=== PATIENT | female | born 1940 | race Caucasian/White ===

== ENCOUNTER 2017-11-18 07:14 | Day surgery (SDC) | payer MEDICARE ==
[~2017-11-18] VITALS: Ht 152.4 cm; Wt 66.0 kg
[~2017-11-18 07:14] MED LIST: BENTYL20 MG PO; FAMO20 PO; IBUP800 PO; LEVFLO500 PO; Loperamide2 MG PO; NAPR220 PO; Norco 5-325 Ta1 EACH PO; ONDA8 PO; Zofran Odt4 MG PO; [UNRECOGNIZED DRUG - OTHER] PO
== END 2017-11-18 09:45 | disposition home or self-care (01) ==
LOC: ORSCSDS 07:14
PROVIDERS: Surgery
PROC: 0DBH8ZX Excision of Cecum, Via Natural or Artificial Opening Endoscopic, Diagnostic (ICD-10-PCS; principal; 2017-11-18 08:30)
DX: Z12.11 Encounter for screening for malignant neoplasm of colon (principal); D12.0 Benign neoplasm of cecum; K63.3 Ulcer of intestine; K57.30 Diverticulosis of large intestine without perforation or abscess without bleeding; Z79.899 Other long term (current) drug therapy
CPT/HCPCS: 88305; J2405; J7120

== ENCOUNTER 2020-01-29 11:41 | Emergency (ER) | payer MEDICARE ==
[~2020-01-29] VITALS: Ht 152.4 cm; Wt 64.4 kg
[2020-01-29 12:17] LABS: BASOPHILS ABSOLUTE AUTO 0.05 K/mm3 (0.00-0.23); BASOPHILS PERCENT AUTO 1 % (0-2); EOSINOPHILS ABSOLUTE AUTO 0.21 K/mm3 (0.00-0.68); EOSINOPHILS PERCENT AUTO 2 % (0-6); Hematocrit 39.5 % (33.0-51.0); Hemoglobin 12.9 g/dL (11.5-16.0); IMMATURE GRAN ABSOLUTE AUTO 0.02 K/mm3 (0.00-0.10); IMMATURE GRAN PERCENT AUTO 0 % (0-1); LYMPHOCYTES ABSOLUTE AUTO 1.51 K/mm3 (0.84-5.20); LYMPHOCYTES PERCENT AUTO 16 % (21-46); MONOCYTES ABSOLUTE AUTO 0.96 K/mm3 (0.16-1.47); MONOCYTES PERCENT AUTO 10 % (4-13); Mean Corpuscular HGB 34.6 pg (26.0-34.0); Mean Corpuscular HGB Conc 32.7 g/dL (31.5-36.5); Mean Corpuscular Volume 106 fL (80-100); Mean Platelet Volume 9.7 fL (9.1-12.4); NEUTROPHILS ABSOLUTE AUTO 6.72 K/mm3 (1.96-9.15); NEUTROPHILS PERCENT AUTO 71 % (41-73); Platelet Count 322 K/mm3 (150-400); RDW Standard Deviation 62.8 fL (35.1-46.3); Red Blood Cell Count 3.73 M/mm3 (3.80-5.20); White Blood Cell Count 9.47 K/mm3 (4.00-11.30)
[2020-01-29 12:43] LABS: Alanine Aminotransfer (ALT/SGP 18 U/L (12-78); Albumin, Blood 2.9 g/dL (3.4-5.0); Albumin/Globulin Ratio 0.7 (0.8-1.8); Alk Phos 108 U/L (50-136); Anion Gap 5 mmol/L (6-16); Aspartate Aminotrans (AST/SGOT 17 U/L (12-37); Bilirubin, Total 0.3 mg/dL (0.1-1.0); Blood Urea Nitrogen 18 mg/dL (8-24); Bun/Creatinine Ratio 25.3 (12.0-20.0); CO2, Blood 25 mmol/L (21-32); Calcium, Blood 8.2 mg/dL (8.5-10.1); Chloride, Blood 111 mmol/L (98-108); Creatinine, Blood 0.71 mg/dL (0.40-1.00); Glomerular Filtration Rate >60 (60-); Glucose, Blood 115 mg/dL (70-99); Potassium, Blood 4.1 mmol/L (3.5-5.5); Sodium, Blood 141 mmol/L (136-145); Total Protein, Blood 6.9 g/dL (6.4-8.2); Troponin I <0.015 ng/mL (0.000-0.040)
[2020-01-29 12:52] LABS: International Normalized Ratio 0.94; Prothrombin Time Results 10.1 Sec (9.7-11.5)
== END 2020-01-29 15:17 | disposition home or self-care (01) ==
LOC: ER 11:41
PROVIDERS: Emergency Medicine
DX: J90 Pleural effusion, not elsewhere classified (principal); C56.9 Malignant neoplasm of unspecified ovary; Z88.8 Allergy status to other drugs, medicaments and biological substances; Z79.899 Other long term (current) drug therapy; Z87.891 Personal history of nicotine dependence
CPT/HCPCS: 32555; 36415; 71045; 71046; 80053; 84484; 85025; 85610; 93005; 93010; 99285-25

== ENCOUNTER 2020-02-04 10:30 | Emergency (ER) | payer MEDICARE, OTHER ==
[~2020-02-04] VITALS: Ht 152.4 cm; Wt 64.4 kg
[2020-02-04] MEDS ORDERED: CALCIUM CIT 311 EACH PO (12:14)
== END 2020-02-04 14:27 | disposition home or self-care (01) ==
LOC: ER 10:30
DX: J91.0 Malignant pleural effusion (principal); Z85.43 Personal history of malignant neoplasm of ovary; Z88.8 Allergy status to other drugs, medicaments and biological substances; Z87.891 Personal history of nicotine dependence
CPT/HCPCS: 32555; 36415; 71045; 93005; 93010; 99285-25

== ENCOUNTER 2020-02-13 10:05 | Emergency (ER) | payer MEDICARE ==
[~2020-02-13] VITALS: Ht 157.5 cm; Wt 64.4 kg
[~2020-02-13 10:05] MED LIST changes: +CALCIUM CIT 311 EACH PO
[2020-02-13 10:51] LABS: BASOPHILS ABSOLUTE AUTO 0.04 K/mm3 (0.00-0.23); BASOPHILS PERCENT AUTO 0 % (0-2); EOSINOPHILS ABSOLUTE AUTO 0.17 K/mm3 (0.00-0.68); EOSINOPHILS PERCENT AUTO 2 % (0-6); Hematocrit 38.1 % (33.0-51.0); Hemoglobin 12.2 g/dL (11.5-16.0); IMMATURE GRAN ABSOLUTE AUTO 0.03 K/mm3 (0.00-0.10); IMMATURE GRAN PERCENT AUTO 0 % (0-1); LYMPHOCYTES PERCENT AUTO 12 % (21-46); MONOCYTES ABSOLUTE AUTO 0.82 K/mm3 (0.16-1.47); MONOCYTES PERCENT AUTO 8 % (4-13); Mean Corpuscular HGB 32.7 pg (26.0-34.0); Mean Corpuscular Volume 102 fL (80-100); Mean Platelet Volume 9.7 fL (9.1-12.4); NEUTROPHILS ABSOLUTE AUTO 7.85 K/mm3 (1.96-9.15); NEUTROPHILS PERCENT AUTO 78 % (41-73); Platelet Count 404 K/mm3 (150-400); RDW Coefficient Variation 14.9 % (11.7-14.2); RDW Standard Deviation 56.7 fL (35.1-46.3); Red Blood Cell Count 3.73 M/mm3 (3.80-5.20); White Blood Cell Count 10.11 K/mm3 (4.00-11.30)
[2020-02-13 11:00] LABS: Alanine Aminotransfer (ALT/SGP 18 U/L (12-78); Albumin, Blood 2.6 g/dL (3.4-5.0); Albumin/Globulin Ratio 0.6 (0.8-1.8); Alk Phos 101 U/L (50-136); Anion Gap 6 mmol/L (6-16); Aspartate Aminotrans (AST/SGOT 20 U/L (12-37); Bilirubin, Total 0.3 mg/dL (0.1-1.0); Blood Urea Nitrogen 16 mg/dL (8-24); Bun/Creatinine Ratio 22.4 (12.0-20.0); CO2, Blood 26 mmol/L (21-32); Calcium, Blood 8.4 mg/dL (8.5-10.1); Chloride, Blood 108 mmol/L (98-108); Creatinine, Blood 0.71 mg/dL (0.40-1.00); Globulin, Blood 4.2 g/dL (2.2-4.0); Glomerular Filtration Rate >60 (60-); Glucose, Blood 112 mg/dL (70-99); Potassium, Blood 4.3 mmol/L (3.5-5.5); Sodium, Blood 140 mmol/L (136-145); Total Protein, Blood 6.8 g/dL (6.4-8.2)
[2020-02-13 11:25] LABS: International Normalized Ratio 0.96; Prothrombin Time Results 10.3 Sec (9.7-11.5)
[2020-02-13 11:28] LABS: D-Dimer, Quantitative 11.19 mg/L FEU (0.00-0.52)
== END 2020-02-13 16:24 | disposition home or self-care (01) ==
LOC: ER 10:05
PROVIDERS: Emergency Medicine
DX: J90 Pleural effusion, not elsewhere classified (principal); Z88.8 Allergy status to other drugs, medicaments and biological substances
CPT/HCPCS: 32555; 36415; 71045; 71046; 71260; 80053; 83880; 85025; 85379; 85610; 85730; 93005; 93010; 99285-25; Q9967

== ENCOUNTER 2020-04-20 23:39 | Inpatient (IN) | payer MEDICARE ==
[~2020-04-20] VITALS: Ht 152.4 cm; Wt 62.0 kg
[2020-04-21] MEDS ORDERED: Avastin25 MG/ML (00:05)
[2020-04-21] MEDS ORDERED: DOXIL IV (00:06)
[2020-04-21] MEDS ORDERED: ZOFRAN4 MG SL (00:06)
[2020-04-21 00:51] LABS: BASOPHILS ABSOLUTE AUTO 0.03 K/mm3 (0.00-0.23); BASOPHILS PERCENT AUTO 0 % (0-2); EOSINOPHILS ABSOLUTE AUTO 0.01 K/mm3 (0.00-0.68); EOSINOPHILS PERCENT AUTO 0 % (0-6); Hematocrit 41.9 % (33.0-51.0); Hemoglobin 13.5 g/dL (11.5-16.0); IMMATURE GRAN ABSOLUTE AUTO 0.07 K/mm3 (0.00-0.10); IMMATURE GRAN PERCENT AUTO 1 % (0-1); LYMPHOCYTES PERCENT AUTO 8 % (21-46); MONOCYTES ABSOLUTE AUTO 1.05 K/mm3 (0.16-1.47); MONOCYTES PERCENT AUTO 9 % (4-13); Mean Corpuscular HGB 30.3 pg (26.0-34.0); Mean Corpuscular HGB Conc 32.2 g/dL (31.5-36.5); Mean Corpuscular Volume 94 fL (80-100); Mean Platelet Volume 9.3 fL (9.1-12.4); NEUTROPHILS ABSOLUTE AUTO 9.62 K/mm3 (1.96-9.15); NEUTROPHILS PERCENT AUTO 82 % (41-73); Platelet Count 324 K/mm3 (150-400); RDW Standard Deviation 59.7 fL (35.1-46.3); Red Blood Cell Count 4.46 M/mm3 (3.80-5.20); White Blood Cell Count 11.68 K/mm3 (4.00-11.30)
[2020-04-21 01:06] LABS: International Normalized Ratio 0.97; Prothrombin Time Results 10.4 Sec (9.7-11.5)
[2020-04-21 01:13] LABS: Alanine Aminotransfer (ALT/SGP 18 U/L (12-78); Albumin, Blood 2.9 g/dL (3.4-5.0); Albumin/Globulin Ratio 0.6 (0.8-1.8); Alk Phos 120 U/L (50-136); Anion Gap 6 mmol/L (6-16); Aspartate Aminotrans (AST/SGOT 14 U/L (12-37); Bilirubin, Total 0.3 mg/dL (0.1-1.0); Blood Urea Nitrogen 16 mg/dL (8-24); Bun/Creatinine Ratio 19.7 (12.0-20.0); CO2, Blood 29 mmol/L (21-32); Calcium, Blood 9.3 mg/dL (8.5-10.1); Chloride, Blood 102 mmol/L (98-108); Creatinine, Blood 0.81 mg/dL (0.40-1.00); Globulin, Blood 4.5 g/dL (2.2-4.0); Glomerular Filtration Rate >60 (60-); Glucose, Blood 140 mg/dL (70-99); Potassium, Blood 4.3 mmol/L (3.5-5.5); Sodium, Blood 137 mmol/L (136-145); Total Protein, Blood 7.4 g/dL (6.4-8.2); Troponin I <0.015 ng/mL (0.000-0.040)
[2020-04-21 01:39] LABS: Source, Urine Clean Catch
[2020-04-21 01:43] LABS: Appearance, Urine Cloudy (Clear); Bilirubin, Urine Neg (Neg); Blood, Urine 4+ (Neg); Color, Urine Yellow (P-Yellow); Glucose Qualitative, Urine Neg (Neg); Ketones, Urine 1+ (Neg); Leukocyte Esterase, Urine 3+ (Neg); Nitrite, Urine Pos (Neg); Protein, Urine 2+ (Neg); Specific Gravity, Urine 1.015 (1.003-1.022); Urobilinogen, Urine NORM (Normal)
[2020-04-21 01:49] LABS: White Blood Cells, Urine TNTC /hpf (0-5)
[2020-04-21 01:50] LABS: Bacteria Many /hpf; Squamous Epithelial Cells Rare /hpf (Few)
[2020-04-21] MEDS ORDERED: FISH OIL 1,2001 EAC4 PO (05:24)
[2020-04-21] MEDS ORDERED: NAPR220 PO (05:24)
[2020-04-21 13:28] LABS: International Normalized Ratio 1.03
--- NOTE | 2020-04-21 16:46 | NUR ---
SHIFT SUMMARY: PATIENT HAS BEEN ALERT AND ORIENTED DURING THE SHIFT. HER PULSE OX READ THAT HER OXYGEN LEVELS WERE BETWEEN 87-88%, AND HAS BEEN ON 3L OXYGEN. SINCE THEN HER OXYGEN LEVELS HAVE BEEN IN THE 90'S. SHE HAS A SENSE OF URGENCY WHEN USING THE BATHROOM. SHE AMBULATES NICELY IN THE ROOM WITH STANDBY ASSIST FOR HER IV LINES. AFTER MOVING TO GO TO THE BATHROOM SHE NEEDS TO STAY SITTING UP FOR A COUPLE OF MINTUES FOR HER TO CATCH HER BREATH. HER SON HAS BEEN AT HER BEDSIDE MAJORITY OF THE DAY. SHE HAS BEEN SLEEPING DURING THE DAY TOO. WILL CONTINUE TO MONITOR UNTIL THE ONCOMING NIGHTSHIFT NURSE COMES TO RECIEVE REPORT.
--- NOTE | 2020-04-21 22:05 | NUR ---
WHILE REVIEWING MRS. COLLINS'S CHART, IT WAS NOTED THAT THE IMAGING STUDIES WERE NEGATIVE FOR DVT OR PE. SHE IS TAKING TWO CHEMOTHERAPY AGENTS; AVASTIN AND DOXIL. PER THE WEBSITE, THE FIRST THREE POSSIBLE SERIOUS SIDE EFFECTS LISTED ARE GI PERFORATION, WOUNDS THAT WILL NOT HEAL, AND SERIOUS BLEEDING. PHONE CALL PLACED TO ON-CALL HOSPITALIST REGARDING HEPARIN DRIP, HEPARIN DISCONTINUED. PT'S SON STATED THAT HER RIGHT LUNG HAS COLLAPSED TWICE AND THAT SHE HAS REQUIRED THORACENTESIS TWICE. HE STATED THAT HER ONCOLOGIST STARTED HER ON LIPOSOMAL DOXORUBICIN D/T SUSPICION OF METASTASIS TO THE LUNGS WHICH IS NOT VISIBLE ON CT SCAN AND PRESENTS "SHEETS" AND SUSPECTED TO BE THE CAUSE OF THE FLUID AROUND HER LUNGS. HE STATED THAT SHE HAS BEEN SHORT OF BREATH AT BASELINE FOR SEVERAL MONTHS, ESPECIALLY WITH AMBULATION. HE ALSO STATED THAT THE FLUID ON HER LUNGS HAS IMPROVED SINCE STARTING THE DOXORUBICIN.
[2020-04-22 04:42] LABS: BASOPHILS ABSOLUTE AUTO 0.02 K/mm3 (0.00-0.23); BASOPHILS PERCENT AUTO 0 % (0-2); EOSINOPHILS ABSOLUTE AUTO 0.01 K/mm3 (0.00-0.68); EOSINOPHILS PERCENT AUTO 0 % (0-6); Hemoglobin 11.1 g/dL (11.5-16.0); IMMATURE GRAN ABSOLUTE AUTO 0.04 K/mm3 (0.00-0.10); IMMATURE GRAN PERCENT AUTO 0 % (0-1); LYMPHOCYTES ABSOLUTE AUTO 0.85 K/mm3 (0.84-5.20); LYMPHOCYTES PERCENT AUTO 10 % (21-46); MONOCYTES ABSOLUTE AUTO 0.66 K/mm3 (0.16-1.47); MONOCYTES PERCENT AUTO 7 % (4-13); Mean Corpuscular HGB 30.5 pg (26.0-34.0); Mean Corpuscular HGB Conc 32.6 g/dL (31.5-36.5); Mean Corpuscular Volume 93 fL (80-100); Mean Platelet Volume 9.1 fL (9.1-12.4); NEUTROPHILS ABSOLUTE AUTO 7.31 K/mm3 (1.96-9.15); NEUTROPHILS PERCENT AUTO 82 % (41-73); Platelet Count 211 K/mm3 (150-400); RDW Coefficient Variation 17.1 % (11.7-14.2); RDW Standard Deviation 59.2 fL (35.1-46.3); Red Blood Cell Count 3.64 M/mm3 (3.80-5.20); White Blood Cell Count 8.89 K/mm3 (4.00-11.30)
[2020-04-22 05:07] LABS: Alanine Aminotransfer (ALT/SGP 21 U/L (12-78); Albumin, Blood 1.9 g/dL (3.4-5.0); Albumin/Globulin Ratio 0.5 (0.8-1.8); Alk Phos 96 U/L (50-136); Anion Gap 5 mmol/L (6-16); Aspartate Aminotrans (AST/SGOT 29 U/L (12-37); Bilirubin, Total 0.4 mg/dL (0.1-1.0); Blood Urea Nitrogen 11 mg/dL (8-24); Bun/Creatinine Ratio 14.3 (12.0-20.0); CO2, Blood 26 mmol/L (21-32); Calcium, Blood 7.5 mg/dL (8.5-10.1); Chloride, Blood 104 mmol/L (98-108); Creatinine, Blood 0.77 mg/dL (0.40-1.00); Globulin, Blood 3.5 g/dL (2.2-4.0); Glomerular Filtration Rate >60 (60-); Glucose, Blood 116 mg/dL (70-99); Potassium, Blood 3.8 mmol/L (3.5-5.5); Sodium, Blood 135 mmol/L (136-145); Total Protein, Blood 5.4 g/dL (6.4-8.2)
--- NOTE | 2020-04-22 05:10 | NUR ---
SHIFT SUMMARY: SAILAJA REPORTS THAT APAP IS WHOLLY INEFFECTIVE FOR HER. SHE STATES THAT SHE IS ABLE TO TOLERATE 200 MG OF IBUPROFEN, BUT THAT A LARGER DOSE MAKES HER "HIGHER THAN A KITE". SHE STATES THAT SHE TAKES ALEVE AT HOME TO TREAT FEVER. FEVER IMPROVED WITH 200 MG IBUPROFEN. NPO AT MIDNIGHT FOR POSSIBLE PROCEDURE. 1 PERSON ASSIST TO THE RESTROOM, CONTINUES TO HAVE URINARY URGENCY BUT REPORTS IT IS IMPROVING. 3 L VIA NC. SHE IS LYING IN BED WITH HER CALL LIGHT IN REACH. WILL REPORT TO DAY SHIFT RN.
--- NOTE | 2020-04-22 13:28 | NUR ---
DR CORRALES IN TO SEE PT.
--- NOTE | 2020-04-22 17:43 | NUR ---
SUMMARY NO ACUTE CHANGES T/O SHIFT. PT SHOWERED THIS SHIFT. FEBRILE THIS AFTERNOON, W TEMP OF 100.3. ADMINISTERED IBUPROFEN PER ORDERS. TEMP NOW 100.1. PT DECLINED COOL WASHCLOTH. NEW IV TO RFA INFUSING W/O DIFFICULTY. CALL LIGHT IN REACH. SON AT BEDSIDE.
[2020-04-23 04:25] LABS: BASOPHILS ABSOLUTE AUTO 0.02 K/mm3 (0.00-0.23); BASOPHILS PERCENT AUTO 0 % (0-2); EOSINOPHILS ABSOLUTE AUTO 0.03 K/mm3 (0.00-0.68); EOSINOPHILS PERCENT AUTO 1 % (0-6); Hematocrit 34.8 % (33.0-51.0); Hemoglobin 11.1 g/dL (11.5-16.0); IMMATURE GRAN ABSOLUTE AUTO 0.05 K/mm3 (0.00-0.10); IMMATURE GRAN PERCENT AUTO 1 % (0-1); LYMPHOCYTES ABSOLUTE AUTO 0.53 K/mm3 (0.84-5.20); LYMPHOCYTES PERCENT AUTO 10 % (21-46); MONOCYTES ABSOLUTE AUTO 0.37 K/mm3 (0.16-1.47); MONOCYTES PERCENT AUTO 7 % (4-13); Mean Corpuscular HGB 30.1 pg (26.0-34.0); Mean Corpuscular HGB Conc 31.9 g/dL (31.5-36.5); Mean Corpuscular Volume 94 fL (80-100); Mean Platelet Volume 9.7 fL (9.1-12.4); NEUTROPHILS ABSOLUTE AUTO 4.29 K/mm3 (1.96-9.15); NEUTROPHILS PERCENT AUTO 81 % (41-73); Platelet Count 213 K/mm3 (150-400); RDW Coefficient Variation 17.1 % (11.7-14.2); RDW Standard Deviation 59.7 fL (35.1-46.3); Red Blood Cell Count 3.69 M/mm3 (3.80-5.20); White Blood Cell Count 5.29 K/mm3 (4.00-11.30)
[2020-04-23 04:41] LABS: Alanine Aminotransfer (ALT/SGP 21 U/L (12-78); Albumin, Blood 1.8 g/dL (3.4-5.0); Albumin/Globulin Ratio 0.5 (0.8-1.8); Alk Phos 116 U/L (50-136); Anion Gap 7 mmol/L (6-16); Aspartate Aminotrans (AST/SGOT 36 U/L (12-37); Bilirubin, Total 0.2 mg/dL (0.1-1.0); Blood Urea Nitrogen 11 mg/dL (8-24); Bun/Creatinine Ratio 16.3 (12.0-20.0); CO2, Blood 25 mmol/L (21-32); Calcium, Blood 7.6 mg/dL (8.5-10.1); Chloride, Blood 107 mmol/L (98-108); Creatinine, Blood 0.67 mg/dL (0.40-1.00); Globulin, Blood 3.6 g/dL (2.2-4.0); Glomerular Filtration Rate >60 (60-); Glucose, Blood 177 mg/dL (70-99); Magnesium, Blood 2.2 mg/dL (1.6-2.4); Phosphorus, Blood 1.3 mg/dL (2.5-4.9); Potassium, Blood 3.4 mmol/L (3.5-5.5); Sodium, Blood 139 mmol/L (136-145); Total Protein, Blood 5.4 g/dL (6.4-8.2)
--- NOTE | 2020-04-23 06:49 | NUR ---
SUMMARY PT CONTINUES WITH TEMPS. SEE EMAR FOR ADVIL DOSING.PT VERB FEELING BETTER.REQUESTED SANDWICH TONIGHT STATING IT IS THE FIRST TIME SHE HAS REALLY HAD ANY APPETITE SINCE FEBRUARY. CHANGED DIET ORDER.PT TOLERATED SANDWICH AND WAS PLEASED.
--- NOTE | 2020-04-23 10:48 | NUR ---
DR CORRALES IN TO SEE PT.
--- NOTE | 2020-04-23 17:13 | NUR ---
SUMMARY NO ACUTE CHANGES T/O SHIFT. PT INDEPENDENT IN ROOM. HAS BEEN AFEBRILE T/O DAY. ECHO COMPLETED THIS SHIFT. PT SLEEPING AT THIS TIME. REPORTED VOIDING AND HAD BM THIS SHIFT. CALL LIGHT IN REACH.
--- NOTE | 2020-04-23 19:03 | NUR ---
sob w/dyspnea PT AMBULATED TO RESTROOM AND BECAME SHORT OF BREATH W/THE EXERTION. PLACED ON 1L NC. PT STATED FEELING WEAK AFTER DAY'S ACTIVITIES. NOW BACK IN BED, CALL LIGHT IN REACH.
--- NOTE | 2020-04-24 03:27 | NUR ---
HYPOXIC ROUNDED ON PT, PT HAD TAKEN OXYGEN OFF. CHECKED SPO2 WHICH WAS IN THE 70'S. PT WAS SOB. PLACED O2 BACK ON AND TITRATED UP TO 4L SO GET SPO2 GREATER THAN 90. WILL MONITOR CLOSELY IN CASE PT PULLS OFF OXYGEN IN SLEEP.
--- NOTE | 2020-04-24 04:46 | NUR ---
PT DID WELL DURING NIGHT, BUT DID REMOVE OXYGEN AND SPO2 DROPPED INTO THE 70'S. PT WAS ABLE TO RECOVER QUICKLY BUT IS NOW ON 3L NC. DOES AMBULATE WELL WITH MINIMAL SOB WITH OXYGEN ON. DENIES ANY OTHER COMPLAINTS. CALL LIGHT IN REACH.
[2020-04-24 05:12] LABS: Anion Gap 6 mmol/L (6-16); Blood Urea Nitrogen 10 mg/dL (8-24); Bun/Creatinine Ratio 16.1 (12.0-20.0); CO2, Blood 26 mmol/L (21-32); Calcium, Blood 7.5 mg/dL (8.5-10.1); Chloride, Blood 106 mmol/L (98-108); Creatinine, Blood 0.62 mg/dL (0.40-1.00); Glomerular Filtration Rate >60 (60-); Glucose, Blood 118 mg/dL (70-99); Phosphorus, Blood 1.9 mg/dL (2.5-4.9); Potassium, Blood 3.5 mmol/L (3.5-5.5); Sodium, Blood 138 mmol/L (136-145)
--- NOTE | 2020-04-24 07:40 | NUR ---
pt stated she is still having some sob at rest and with activity and had a bad episode last night pt stated she does not use o2 at home will ask dr about a home o2 eval if pt d/c home
--- NOTE | 2020-04-24 09:20 | NUR ---
meds given as sched pt visiting with her son
--- NOTE | 2020-04-24 12:00 | NUR ---
pt eating lunch
--- NOTE | 2020-04-24 13:30 | NUR ---
dr worley by to see pt plan for discharge and rt eval with o2 eval
--- NOTE | 2020-04-24 15:11 | NUR ---
rt by to see pt for home [address] worley
[2020-04-24] MEDS ORDERED: CEFP200 PO (16:25)
[2020-04-24] MEDS ORDERED: K-Phos Origina500 MG PO (16:26)
[2020-04-24] MEDS ORDERED: SPIR50 PO (16:27)
--- NOTE | 2020-04-24 17:11 | NUR ---
RX CALLED [facility] DISCHARGE INSTRUCTIONS REVIEWED WITH PT AND SON NO ACUTE CHNAGES
--- NOTE | 2020-04-24 18:05 | NUR ---
wc escort to car with her son pt on portable oxygen at 4 l nc
== END 2020-04-24 17:30 | disposition home or self-care (01) | DRG 871 ==
LOC: ER 23:39 → SURS 04-21 04:00
PROVIDERS: Emergency Medicine; Hospitalist; Internal Medicine Gastroenterology; ADMIT Internal Medicine
DX: A41.9 Sepsis, unspecified organism (principal); I50.33 Acute on chronic diastolic (congestive) heart failure; N39.0 Urinary tract infection, site not specified; C79.60 Secondary malignant neoplasm of unspecified ovary; R18.0 Malignant ascites; J91.0 Malignant pleural effusion; C80.1 Malignant (primary) neoplasm, unspecified; R09.02 Hypoxemia; B96.20 Unspecified Escherichia coli [E. coli] as the cause of diseases classified elsewhere; E83.39 Other disorders of phosphorus metabolism; E87.6 Hypokalemia; I35.0 Nonrheumatic aortic (valve) stenosis
CPT/HCPCS: 36415; 71260; 74177; 76705; 80048; 80053; 81001; 83605; 83690; 83735; 83880; 84100; 84484; 85025; 85610; 85730; 87040; 87077; 87086; 87186; 93005; 93010; 93306; 93970; 93975; 94761; 96365; 99285-25; J0696; J1644; J1650; J2405; J7030; J7042; J7060; Q9967